=== PATIENT | female | born 1940 | race Caucasian/White ===

== ENCOUNTER → 2016-08-10 | Outpatient (CLI) | payer OTHER, MEDICARE ==
[~2016-08-10] MED LIST: GADOBUTROL 10 ML VIAL IVP ONE
--- NOTE | 2016-08-10 15:17 | MR ---
MRI of the Brain and Pituitary Without and With Contrast Enhancement at 1245 hours History: Pituitary adenoma, D35.2, prior history of breast cancer. COMPARISON: MRI April 2016 Technique: Sagittal T1, axial FLAIR, and axial postcontrast T1-weighted MR series through the entire brain with the uneventful intravenous administration of 7.5 mL Gadavist contrast. Additional thin-sli ce sagittal and coronal pre- and postcontrast T1-weighted MR series through the pituitary gland. 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 No suprasellar or pericavernous extension. No mass effect on the optic chiasm or prechiasmatic optic nerves. The ventricles, cisterns, and sulci demonstrate mild widening consistent with mild cerebral atrophy. No evidence of acute infarct, acute hemorrhage, hydrocephalus or mass effect. Postcontrast images demonstrate no intra-axial enhancing lesions, enhancing metastasis, or leptomenin geal carcinomatosis. IMPRESSION: 1. 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 2. No acute infarct, acute hemorrhage, hydrocephalus or mass effect. 3. Mild cerebral atrophy. 4. No enhancing metastasis or leptomeningeal carcinomatosis.
== END ==
LOC: FIMAGING 12:07
PROVIDERS: ATTEND Neurological Surgery
DX: D35.2 Benign neoplasm of pituitary gland (principal); Z85.3 Personal history of malignant neoplasm of breast
CPT/HCPCS: 70553; A9585

== ENCOUNTER → 2017-01-30 | Outpatient (CLI) | payer OTHER, MEDICARE | LOC: FIMAGING 09:03 | PROVIDERS: ATTEND Internal Medicine | DX: R92.8 Other abnormal and inconclusive findings on diagnostic imaging of breast (principal) | CPT/HCPCS: G0206 ==

== ENCOUNTER → 2017-06-04 | Outpatient (CLI) | payer OTHER, MEDICARE | LOC: FIMAGING 09:40 | PROVIDERS: ATTEND Internal Medicine | DX: Z12.31 Encounter for screening mammogram for malignant neoplasm of breast (principal); Z85.3 Personal history of malignant neoplasm of breast | CPT/HCPCS: G0202 ==

== ENCOUNTER → 2018-06-27 | Outpatient (CLI) | payer OTHER, MEDICARE | LOC: FIMAGING 12:59 | PROVIDERS: ATTEND Internal Medicine | DX: Z12.31 Encounter for screening mammogram for malignant neoplasm of breast (principal); Z85.3 Personal history of malignant neoplasm of breast ==